=== PATIENT | male | born 1965 | race Caucasian/White ===

== ENCOUNTER 2021-03-31 22:39 | Emergency (ER) | payer MEDICARE, MEDICAID ==
[~2021-03-31] VITALS: Ht 182.9 cm; Wt 113.6 kg
[2021-04-01] MEDS ORDERED: HYDR-3965 PO (00:25)
[2021-04-01] MEDS ORDERED: ketorolac trometh. 30mg/ml inj. IM ONE (00:45)
[2021-04-01 01:09] VITALS: BP 125/78
== END 2021-04-01 01:10 | disposition home or self-care (01) ==
LOC: ER 22:39
DX: S86.002A Unspecified injury of left Achilles tendon, initial encounter (principal); Z88.0 Allergy status to penicillin; Z79.899 Other long term (current) drug therapy; X58.XXXA Exposure to other specified factors, initial encounter; Y93.89 Activity, other specified; Y92.89 Other specified places as the place of occurrence of the external cause; Y99.8 Other external cause status
CPT/HCPCS: 29515; 73610; 96372; 99283; J1885

== ENCOUNTER 2021-04-03 05:57 | Emergency (ER) | payer MEDICARE, MEDICAID ==
[~2021-04-03] VITALS: Ht 182.9 cm; Wt 113.6 kg
[~2021-04-03 05:57] MED LIST: HYDR-3965 PO
[2021-04-03 06:22] VITALS: BP 132/87
[2021-04-03] MEDS ORDERED: CLIN-97 PO (06:59)
== END 2021-04-03 07:14 | disposition home or self-care (01) ==
LOC: ER 05:58
DX: K04.7 Periapical abscess without sinus (principal); F12.90 Cannabis use, unspecified, uncomplicated; Z88.0 Allergy status to penicillin; Z79.2 Long term (current) use of antibiotics; Z79.899 Other long term (current) drug therapy
CPT/HCPCS: 99283